=== PATIENT | male | born 1990 | race Caucasian/White ===

== ENCOUNTER 2018-06-27 10:08 | Emergency (ER) | payer OTHER ==
[~2018-06-27] VITALS: Ht 177.8 cm; Wt 68.0 kg
[2018-06-27] MEDS ORDERED: ALBUTEROL2.5 MG/31 (10:26)
[2018-06-27 11:00] LABS: ABSOLUTE NEUTROPHILS 9.9 thou/uL (1.4-8.2); BASOPHILS 0.7 % (0.0-2.0); EOSINOPHILS 1.3 % (0.0-3.0); HEMATOCRIT 48.7 % (42.0-52.0); HEMOGLOBIN 16.6 gm/dL (14.0-18.0); LYMPHOCYTES 10.7 % (24.0-44.0); MCHC 34.2 g/dL (28.0-37.0); MCV 87.8 fL (80.0-100.0); MONOCYTES 7.5 % (1.0-8.0); PLATELET COUNT 307 thou/uL (150-400); POLYS 79.8 % (36.0-66.0); RBC 5.54 mil/uL (4.50-6.00); RDW 12.8 % (10.5-14.5); WBC 12.4 thou/uL (4.0-11.0)
[2018-06-27 11:08] LABS: ANION GAP 16 mmol/L (7-16); BUN 7 mg/dL (7-18); CALCIUM 10.2 mg/dL (8.5-10.1); CHLORIDE 102 mmol/L (98-107); CO2 23 mmol/L (21-32); CREATININE 0.7 mg/dL (0.7-1.3); GLUCOSE 90 mg/dL (74-106); POTASSIUM 3.4 mmol/L (3.5-5.1); SODIUM 141 mmol/L (136-145)
[2018-06-27 11:16] LABS: LIPASE 349 U/L (73-393); MAGNESIUM 2.2 mg/dL (1.8-2.4); SGOT 14 U/L (15-37); SGPT 32 U/L (30-65); TOTAL BILIRUBIN 0.7 mg/dL (<0.1-1.0); TOTAL PROTEIN 8.4 g/dL (6.4-8.2); TROPONIN-I <0.06 ng/mL (<0.06)
[2018-06-27] MEDS ORDERED: DOXYCYCLINE 10100 MG PO (13:25)
[2018-06-27] MEDS ORDERED: PREDNISONE 20 M20 MG PO (13:25)
[2018-06-27] MEDS ORDERED: ZOFRAN8 MG PO (13:25)
[2018-06-27 14:16] VITALS: BP 120/72
== END 2018-06-27 13:47 | disposition home or self-care (01) ==
LOC: ER 10:08
PROVIDERS: Emergency Medicine
DX: J45.901 Unspecified asthma with (acute) exacerbation (principal); R11.2 Nausea with vomiting, unspecified; J06.9 Acute upper respiratory infection, unspecified; B34.9 Viral infection, unspecified; F17.210 Nicotine dependence, cigarettes, uncomplicated

== ENCOUNTER 2018-10-31 22:02 | Emergency (ER) | payer OTHER ==
[~2018-10-31] VITALS: Ht 177.8 cm; Wt 68.0 kg
[~2018-10-31 22:02] MED LIST: ALBUTEROL2.5 MG/31; DOXYCYCLINE 10100 MG PO; PREDNISONE 20 M20 MG PO; ZOFRAN8 MG PO
[2018-11-01] MEDS ORDERED: PREDNISONE50 MG PO (00:27)
[2018-11-01] MEDS ORDERED: ALBUTEROL2.5 MG/0.5 INH (00:27)
[2018-11-01 00:46] VITALS: BP 125/72
== END 2018-11-01 00:46 | disposition home or self-care (01) ==
LOC: ER 22:02
DX: J45.901 Unspecified asthma with (acute) exacerbation (principal); F17.210 Nicotine dependence, cigarettes, uncomplicated

== ENCOUNTER → 2019-02-01 | Emergency (ER) | payer OTHER ==
[~2019-02-01] VITALS: Ht 177.8 cm; Wt 68.0 kg
[~2019-02-01] MED LIST changes: +ALBUTEROL2.5 MG/0.5 INH; +NAPROSYN500 MG PO; +PREDNISONE50 MG PO; +TRAMADOL 50 MG50 MG PO
[2019-02-01 21:37] VITALS: BP 125/75
== END ==
LOC: ER 20:21
DX: S46.812A Strain of other muscles, fascia and tendons at shoulder and upper arm level, left arm, initial encounter (principal); S46.811A Strain of other muscles, fascia and tendons at shoulder and upper arm level, right arm, initial encounter; S50.312A Abrasion of left elbow, initial encounter; S60.312A Abrasion of left thumb, initial encounter; S80.211A Abrasion, right knee, initial encounter; J45.909 Unspecified asthma, uncomplicated; F17.210 Nicotine dependence, cigarettes, uncomplicated; V29.49XA Motorcycle driver injured in collision with other motor vehicles in traffic accident, initial encounter; Y93.89 Activity, other specified; Y92.89 Other specified places as the place of occurrence of the external cause; Y99.8 Other external cause status

== ENCOUNTER 2019-03-29 12:08 | Emergency (ER) | payer OTHER ==
[~2019-03-29] VITALS: Ht 177.8 cm; Wt 68.0 kg
[2019-03-29 13:04] LABS: URINE BILIRUBIN NEGATIVE (Negative); URINE BLOOD NEGATIVE (Negative); URINE CLARITY SL CLOUDY; URINE COLOR YELLOW; URINE GLUCOSE-RANDOM* NEGATIVE (Negative); URINE KETONES NEGATIVE (Negative); URINE LEUKOCYTES-REFLEX NEGATIVE (Negative); URINE NITRITE-REFLEX NEGATIVE (Negative); URINE PROTEIN (DIPSTICK) NEGATIVE (Negative); URINE SPECIFIC GRAVITY 1.015 (1.005-1.035); URINE UROBILINOGEN 0.2 E.U./dl (0.2-1.0)
[2019-03-29 13:06] LABS: AMP/METHAMP POSITIVE (Negative); BARBITURATES Negative (Negative); BENZODIAZEPINES Negative (Negative); COCAINE Negative (Negative); METHADONE Negative (Negative); OPIATES Negative (Negative); PCP Negative (Negative)
[2019-03-29 13:14] LABS: HEMATOCRIT 49.1 % (42.0-52.0); HEMOGLOBIN 16.5 gm/dL (14.0-18.0); MCH 29.2 pg (26.0-34.0); MCHC 33.5 g/dL (28.0-37.0); MCV 87.2 fL (80.0-100.0); RBC 5.63 mil/uL (4.50-6.00); RDW 13.5 % (10.5-14.5); WBC 7.8 thou/uL (4.0-11.0)
[2019-03-29 13:19] LABS: CALCIUM 9.6 mg/dL (8.5-10.1); CREATININE 0.8 mg/dL (0.7-1.3); POTASSIUM 3.7 mmol/L (3.5-5.1)
[2019-03-29 17:16] VITALS: BP 120/82
== END 2019-03-29 17:19 | disposition home or self-care (01) ==
LOC: ER 12:08
PROVIDERS: Physician Assistant
DX: F32.9 Major depressive disorder, single episode, unspecified (principal); J45.909 Unspecified asthma, uncomplicated; F17.210 Nicotine dependence, cigarettes, uncomplicated; Z79.899 Other long term (current) drug therapy

== ENCOUNTER 2019-05-23 09:50 | Emergency (ER) | payer OTHER ==
[~2019-05-23] VITALS: Ht 177.8 cm; Wt 68.0 kg
[2019-05-23 12:14] VITALS: BP 121/64
== END 2019-05-23 12:38 | disposition home or self-care (01) ==
LOC: ER 09:50
DX: S61.210A Laceration without foreign body of right index finger without damage to nail, initial encounter (principal); J45.909 Unspecified asthma, uncomplicated; F32.9 Major depressive disorder, single episode, unspecified; F17.210 Nicotine dependence, cigarettes, uncomplicated; W26.8XXA Contact with other sharp object(s), not elsewhere classified, initial encounter; Y93.89 Activity, other specified; Y92.89 Other specified places as the place of occurrence of the external cause; Y99.8 Other external cause status

== ENCOUNTER 2019-09-27 02:35 | Emergency (ER) | payer OTHER ==
[~2019-09-27] VITALS: Ht 177.8 cm; Wt 63.5 kg
[2019-09-27] MEDS ORDERED: NOHOMEMEDICATIONS (03:01)
[2019-09-27] MEDS ORDERED: NORCO 5-325 TA1 EAC1 PO (04:05)
[2019-09-27] MEDS ORDERED: NAPROSYN500 MG PO (04:05)
[2019-09-27 04:20] VITALS: BP 112/79
== END 2019-09-27 04:20 | disposition home or self-care (01) ==
LOC: ER 02:35
DX: M25.531 Pain in right wrist (principal); J45.909 Unspecified asthma, uncomplicated; F17.210 Nicotine dependence, cigarettes, uncomplicated; F32.9 Major depressive disorder, single episode, unspecified; W19.XXXA Unspecified fall, initial encounter; Y93.89 Activity, other specified; Y92.89 Other specified places as the place of occurrence of the external cause; Y99.8 Other external cause status

== ENCOUNTER 2020-05-25 09:30 | Emergency (ER) | payer OTHER ==
[~2020-05-25] VITALS: Ht 177.8 cm; Wt 63.5 kg
[~2020-05-25 09:30] MED LIST changes: +NOHOMEMEDICATIONS; +NORCO 5-325 TA1 EAC1 PO
[2020-05-25 09:50] LABS: HEMATOCRIT 44.9 % (42.0-52.0); HEMOGLOBIN 15.3 gm/dL (14.0-18.0); MCH 29.3 pg (26.0-34.0); MCV 86.1 fL (80.0-100.0); PLATELET COUNT 279 thou/uL (150-400); RBC 5.21 mil/uL (4.50-6.00); RDW 12.9 % (10.5-14.5); WBC 6.8 thou/uL (4.0-11.0)
[2020-05-25 10:00] LABS: CREATININE 1.2 mg/dL (0.7-1.3); POTASSIUM 3.6 mmol/L (3.5-5.1)
[2020-05-25 10:05] LABS: ALBUMIN 4.3 g/dL (3.4-5.0); DIRECT BILIRUBIN 0.3 mg/dL (<0.1-0.2); TOTAL BILIRUBIN 0.8 mg/dL (0.2-1.0); TOTAL PROTEIN 7.9 g/dL (6.4-8.2)
[2020-05-25 10:08] LABS: URINE BILIRUBIN NEGATIVE (Negative); URINE BLOOD 3+ (Negative); URINE CLARITY CLOUDY; URINE COLOR YELLOW; URINE GLUCOSE-RANDOM* NEGATIVE (Negative); URINE KETONES NEGATIVE (Negative); URINE LEUKOCYTES-REFLEX NEGATIVE (Negative); URINE NITRITE-REFLEX NEGATIVE (Negative); URINE PROTEIN (DIPSTICK) 1+ (Negative); URINE UROBILINOGEN 0.2 E.U./dl (0.2-1.0)
[2020-05-25 10:17] LABS: ABSOLUTE NEUTROPHILS 3.1 thou/uL (1.4-8.2); PLATELET ESTIMATE NORMAL
[2020-05-25 10:18] LABS: URINE RBC >20 Many /HPF (0-2)
[2020-05-25 10:19] LABS: AMORPHOUS URATES Moderate /LPF (None Seen); BACTERIA-REFLEX None Seen /HPF (None Seen); CASTS None Seen /LPF (None Seen); SQUAMOUS None Seen /LPF (0-3); URINE WBC-REFLEX 0-5 Rare /HPF (0-5)
[2020-05-25] MEDS ORDERED: ZOFRAN ODT4 MG PO (12:26)
[2020-05-25] MEDS ORDERED: NORCO 5-325 TA1 EAC2 PO (12:26)
[2020-05-25 12:47] VITALS: BP 127/89
== END 2020-05-25 12:47 | disposition home or self-care (01) ==
LOC: ER 09:30
PROVIDERS: Emergency Medicine
DX: N13.2 Hydronephrosis with renal and ureteral calculous obstruction (principal); J45.909 Unspecified asthma, uncomplicated; F32.9 Major depressive disorder, single episode, unspecified; F17.210 Nicotine dependence, cigarettes, uncomplicated; Z87.442 Personal history of urinary calculi